=== PATIENT | female | born 1970 | race Hispanic/Latino ===

== ENCOUNTER 2023-04-12 03:30 | Emergency (ER) | payer MEDICAID, SELFPAY ==
[2023-04-12 03:35] VITALS: BP 135/95; PULSE 98; RESP 20; TEMP 36.5; O2SAT 97
[2023-04-12 04:17] LABS: Influenza A QL RT-PCR Negative (Negative); Influenza B QL RT-PCR Negative (Negative); RSV RNA, RT-PCR Negative (Negative); SARS-CoV-2 RNA PCR Positive (Negative)
[2023-04-12 04:54] VITALS: PULSE 80; RESP 20; O2SAT 97
--- NOTE | 2023-04-12 05:52 | ED.URI ---
HPI - URI/Sore Throat General Chief Complaint: Upper Respiratory Infection Stated Complaint: fever and cough Time Seen by Provider: 04/12/23 05:51 Source: patient Limitations: language barrier History of Present Illness HPI Narrative: 52 yo Yemeni speaking patient presents with URI symptoms. Interpretive services by [facility]oni #[id number]. Has had fever and dry non productive cough since Wednesday. Temperature of 103 four or fiver hours ago. Has been taking tylenol and ibuprofen. Throat and back hurt. No cardiac history, underlying lung conditsion. Has diabetes and hypertension. States she has a primary care provider. No sick contacts; lives with children. Related Data Allergies Allergy/AdvReac Type Severity Reaction Status Date / Time No Known Allergies Allergy Mild Verified 04/12/23 03:38 PMFSH Past Medical History Medical History Diabetes HTN (hypertension) Social History Social History (Updated 04/15/23 @ 20:04 by Danyelle Chun MD) Living arrangements: with family Additional living arrangements comments: children Exam Narrative: GENERAL: Well-appearing, well-nourished, and in no acute distress. HEAD: Normocephalic, atraumatic. EYES: Non injected, non icteric ENT: Nares clear, no rhinorrhea or epistaxis. NECK: Supple. CHEST: Clear to auscultation. No respiratory distress. HEART: Regular rate and rhythm. . ABDOMEN: Soft, nondistended. EXTREMITIES: Normal range of motion. No edema. SKIN: Warm, dry, no rash. NEURO: No focal deficits. Alert and oriented. PSYCH: Normal mood and affect. Course Vital Signs Vital signs: Vital Signs Temperature 97.7 F 04/12/23 03:35 Pulse Rate 98 04/12/23 03:35 Respiratory Rate 20 04/12/23 03:35 Blood Pressure 135/95 H 04/12/23 03:35 Pulse Oximetry 97 04/12/23 03:35 Oxygen Delivery Room Air 04/12/23 03:35 Temperature 97.7 F 04/12/23 03:35 Pulse Rate 82 04/12/23 06:30 Respiratory Rate 18 04/12/23 06:30 Blood Pressure 135/95 H 04/12/23 03:35 Pulse Oximetry 98 04/12/23 06:30 Oxygen Delivery Room Air 04/12/23 04:53 MDM - URI/Sore Throat MDM Narrative Medical decision making narrative: Pt is a Yemeni speaking female with HTN and DM who presents with fever, cough, sore throat and myalgias (particularly back ache) since Wednesday. Interpretive services by [facility] #[id number] She tests positive for covid. Denies needing additional Rx for APAP or ibuprofen. Will be prescribed Paxlovid given underlying co-morbidities but is made aware of side effects. Discharged in stable condition. Lab Data Labs: Lab Results 04/12/23 Range/Units 03:33 Influenza A (RT-PCR) Negative (Negative) Influenza B (RT-PCR) Negative (Negative) RSV (RT-PCR) Negative (Negative) SARS-CoV-2 RNA (RT-PCR) Positive A (Negative) Discharge Plan Discharge Clinical Impression: COVID Patient Disposition: Home, Self-Care Condition: Stable Instructions: Antibiotic Form, COVID-19 (Coronavirus Disease 2019) (ED) Additional Instructions: Continue to take Tylenol and ibuprofen for body aches. You have been prescribed Paxlovid for COVID. You can stop taking it if you have bad side effects. Follow up with your primary care physician. Return to the ED if new/worsening symptoms . Patient Language: Yemeni Prescriptions: New Paxlovid 300 mg (150 mg x 2)-100 mg tablets,dose pack See Rx Instructions .ROUTE .COMPLEX Qty: 30 0RF Rx Instructions: take TWO 150 mg tablets of nirmatrelvir with ONE 100 mg tablet of ritonavir twice daily for 5 days Follow-up/Referrals: PHYSICIAN,MECHANICAL LABORATORY TECHNICIAN [Non-Staff] - Stand Alone Forms: Work/School Release IP Time of Disposition: 06:22
[2023-04-12 06:30] VITALS: PULSE 82; RESP 18; O2SAT 98
[2023-04-12] MEDS: ACETAMINOPHEN 500 MG TABLET 1000 MG PO (06:30)
== END 2023-04-12 06:33 | disposition home or self-care (01) ==
PROVIDERS: Emergency Provider Student in an Organized Health Care Education/Training Program
DX: U07.1 COVID-19 (principal); I10 Essential (primary) hypertension; E11.9 Type 2 diabetes mellitus without complications
CPT/HCPCS: 87637; 99283; A9270

== ENCOUNTER 2023-12-24 19:46 | Emergency (ER) | payer OTHER, SELFPAY ==
--- NOTE | ~2023-12-24 | CT_ITS ---
EXAMINATION: CT abdomen pelvis w con DATE: 12/25/2023 00:48 INDICATION: Abdominal pain. TECHNIQUE: Computed tomography (CT) of the abdomen and pelvis was performed with 100 mL Omnipaque 350 intravenous contrast. Automated exposure control and iterative reconstruction technique were employe d. The dose-length product was 291.59 mGy-cm. COMPARISON: CT abdomen 06/30/2008 FINDINGS: The visualized portions of the lung bases demonstrate mild atelectasis. Calcified right marianne g nodules are consistent with old granulomatous disease. No pleural effusion. The heart size is elbert l. No pericardial effusion. There is a small sliding hiatal hernia. The liver, gallbladder, spleen, p ancreas, adrenal glands, and left kidney are normal. There is a 9 mm cyst in right kidney. There are no dilated loops of bowel. There is wall thickening of loops of small bowel. The appendix is normal. There are no pathologically enlarged lymph nodes. There is no free intraperitoneal fluid. There is mi ld lumbar spondylosis. IMPRESSION: 1. Small bowel wall thickening, consistent with interstitial edema versus enteritis. 2. Small sliding hiatal hernia. Reviewed, dictated and finalized at location A. IMPRESSION: 1. Small bowel wall thickening, consistent with interstitial edema versus enter itis. 2. Small sliding hiatal hernia.
--- NOTE | ~2023-12-24 | XR_ITS ---
EXAMINATION: XR chest 2V DATE: 12/25/2023 00:58 INDICATION: Fever. Tachypnea. TECHNIQUE: Frontal and lateral views of the chest were obtained. COMPARISON: Chest 2 views 12/28/2007, CT abdomen and pelvis 12/25/2023 FINDINGS: There is mild atelectasis in the lower lung zones. No pleural effusion or pneumothorax. The heart size is normal. IMPRESSION: 1. Mild atelectasis in the lower lung zones. Reviewed, dictated and finalized at location A.
[2023-12-24 19:47] VITALS: BP 129/85; PULSE 105; RESP 18; TEMP 37.1; O2SAT 99
[2023-12-24 23:56] LABS: Basophils Percent Auto 0.2 % (0.2-1.2); Eosinophils Percent Auto 0.2 % (0-4.4); Hematocrit 40.2 % (37.0-47.0); Hemoglobin 13.9 g/dL (12.0-15.0); Immature Granulocyte Absolute 0.02 K/mm3 (0.00-0.031); Immature Granulocyte Percent A 0.4 % (0-0.5); Lymphocytes Absolute Auto 1.16 K/mm3 (0.9-3.2); Lymphocytes Percent Auto 22.8 % (18.3-44.2); Mean Corpuscular HGB Conc 34.6 g/dl (32-36); Mean Corpuscular Hemoglobin 29.7 pg (26-34); Mean Corpuscular Volume 85.9 fl (80-100); Mean Platelet Volume 10.2 fl (7.4-10.4); Monocytes Absolute Auto 0.5 K/mm3 (0.1-0.6); Neutrophils Absolute Auto 3.4 K/mm3 (1.3-6.7); Neutrophils Percent Auto 67.4 % (45.5-73.1); Platelet Count Result 234 k/mm3 (150-375); Red Blood Count 4.68 M/mm3 (4.2-5.4); Red Cell Distribution Width 14.3 % (11.5-14.5); White Blood Count 5.1 K/mm3 (4.5-10.0)
[2023-12-24] MEDS: SODIUM CHLORIDE 0.9% IV 1,000 ML 999 ML IV CONT (23:58)
[2023-12-24] MEDS: ACETAMINOPHEN 500 MG TABLET 1000 MG PO (23:59)
[2023-12-24] MEDS: KETOROLAC 30 MG/ML VIAL (*BKC) IV PUSH (23:59)
[2023-12-24] MEDS: FAMOTIDINE 20 MG/2 ML VIAL IV PUSH (23:59)
[2023-12-24] MEDS: MORPHINE SULFATE (*CRX) 4 MG/ML INJ IV PUSH (23:59)
[2023-12-24] MEDS: ONDANSETRON INJ 4 MG/2 ML VIAL IV PUSH (23:59)
[2023-12-25 00:06] LABS: INR 1.1; Prothrombin Time 14.3 Seconds (11.1-14.7)
[2023-12-25 00:07] LABS: Partial Thromboplastin Time 31.7 Seconds (22.3-36.8)
--- NOTE | 2023-12-25 00:14 | ED.ABDPAIN ---
HPI - Abdominal Pain General Chief Complaint: Abdominal Pain <MARTI Field Last Filed: 12/25/23 04:02> Stated Complaint: abd pain <Aruna Irby APRN - Last Filed: 12/25/23 04:02> Time Seen by Provider: 12/24/23 22:15 <Aruna Irby APRN - Last Filed: 12/25/23 04:02> History of Present Illness HPI narrative: Patient is a 53-year-old female presents to the ER with complaints of abdominal pain. She reports the abdominal pain started three days ago. Pt endorses fever, increased urination with small amounts, and headache. She reports she has history of high blood pressure and diabetes. Pt denies chest pain, shortness of breath, and one-sided numbness/tingling. <Aruna Irby APRN - Last Filed: 12/25/23 04:02> Related Data Allergies/Adverse Reactions: Allergies Allergy/AdvReac Type Severity Reaction Status Date / Time No Known Allergies Allergy Mild Verified 12/24/23 22:28 <Aruna Irby APRN - Last Filed: 12/25/23 04:02> Review of Systems Review of Systems: All systems reviewed & are unremarkable except as noted in HPI and below <Aruna Irby APRN - Last Filed: 12/25/23 04:02> PMFSH Past Medical History Medical History: Medical History Diabetes HTN (hypertension) <MARTI iFeld Last Filed: 12/25/23 04:02> Social History Social History: Social History Living arrangements: with family Additional living arrangements comments: children <MARTI Field Last Filed: 12/25/23 04:02> Exam Narrative: GENERAL: Ill-appearing, well-nourished, non-toxic, in mild distress d/t pain. HEAD: Normocephalic, atraumatic. NECK: Supple. No adenopathy, no masses. RESPIRATORY: Airway patent, respirations nonlabored. Clear to auscultation bilaterally, no rales, rhonchi, wheezing. CARDIOVASCULAR: Tachycardic, regular rhythm without murmurs, rubs, or gallops. Peripheral pulses 2+ and equal bilaterally. ABDOMINAL: Soft, tender (R side more than L side), nondistended, no hepatosplenomegaly. Normoactive BS. Negative Psoa's sign, positive McBurney's sign. MUSCULOSKELETAL: Moves all extremities. Strength/ROM intact without gross deformities. SKIN: Hot to the touch, dry, normal color. No rashes. NEURO: A&O X3. Speech clear. Cranial nerves II-XII grossly intact. PSYCHIATRIC: Appropriate mood and affect. Normal interaction. <Aruna Irby APRN - Last Filed: 12/25/23 04:02> Course Course Emergency Course: Received sign-out on this patient pending CT abdomen pelvis. Her blood work is reassuring, no significant abnormalities. No leukocytosis, no transaminitis, normal lipase. CT abdomen pelvis with mild enteritis. No other acute abnormalities. On Re-evaluation, the patient states that she feels well. She currently denies any pain. She feels comfortable going home. Discussed the workup. Will send her home with [facility] and [facility]. Advised aggressive oral hydration and close PCP follow-up. Appropriate return precautions given. Patient and her son are agreeable this plan. Discharged in stable condition. <Ju Jenkins MD - Last Filed: 12/25/23 06:42> Vital Signs Vital signs: Vital Signs Temperature 98.8 F 12/24/23 19:47 Pulse Rate 105 H 12/24/23 19:47 Respiratory Rate 18 12/24/23 19:47 Blood Pressure 129/85 12/24/23 19:47 Pulse Oximetry 99 12/24/23 19:47 Oxygen Delivery Room Air 12/24/23 19:47 Temperature 98.8 F 12/24/23 19:47 Pulse Rate 66 12/25/23 04:54 Respiratory Rate 13 12/25/23 04:54 Blood Pressure 100/62 12/25/23 04:54 Pulse Oximetry 94 12/25/23 04:54 Oxygen Delivery Room Air 12/24/23 19:47 <Aruna Irby APRN - Last Filed: 12/25/23 04:02> Vital Signs Temperature 98.8 F 12/24/23 19:47 Pulse Rate 105 H 12/24/23 19:47
[2023-12-25 00:27] LABS: Alanine Aminotransferase 42 U/L (6-35); Albumin Level 4.3 g/dL (3.5-5.1); Alkaline Phosphatase 81 U/L (38-126); Anion Gap 12 mmol/L (4-12); Aspartate Amino Transferase 42 U/L (14-36); Bilirubin,Total 0.6 mg/dL (0.2-1.3); Blood Urea Nitrogen 20 mg/dL (7-17); Calcium 9.2 mg/dL (8.4-10.2); Carbon Dioxide 25 mmol/L (22-30); Chloride 99 mmol/L (98-107); Estimated CRCL calculation 90 ml/min; Estimated Glomerular Filt Rate > 60; Glucose 108 mg/dL (65-110); Lactic Acid Reflex 0.9 mmol/L (0.7-2.0); Lipase 97 U/L (23-300); Potassium 3.4 mmol/L (3.4-5.0); Sodium 136 mmol/L (137-145)
[2023-12-25 00:38] LABS: Troponin I < 0.012 ng/mL (0.000-0.034)
[2023-12-25 01:15] VITALS: BP 115/70; PULSE 81; RESP 16; O2SAT 98
[2023-12-25 02:37] LABS: Add Urine Microscopic? NO; Appearance Urine Clear (Clear); Bilirubin Urine Negative (Negative); Blood Urine Negative (Negative); Color Urine Yellow (Yellow); Glucose Urine UA 3+ mg/dL (Negative); Ketones Urine 2+ mg/dL (Negative); Leukocyte Esterase Ur Negative LEU/UL (Negative); Nitrate Urine Negative (Negative); Protein Urine Negative (Negative); Specific Grav Ur > 1.045 (1.001-1.035); Urobilinogen Urine 0.2 mg/dL (<2.0)
[2023-12-25 03:13] LABS: Influenza A QL RT-PCR Negative (Negative); Influenza B QL RT-PCR Negative (Negative); RSV RNA, RT-PCR Negative (Negative); SARS-CoV-2 RNA PCR Negative (Negative)
[2023-12-25] MEDS: SODIUM CHLORIDE 0.9% IV 1,000 ML 999 ML IV CONT (03:46)
[2023-12-25] MEDS: diphenhydrAMINE HCl INJ 50 MG/ML VIAL 25 MG IV PUSH (03:46)
[2023-12-25] MEDS: METOCLOPRAMIDE HCL INJ 10 MG/2 ML VIAL IV PUSH (03:46)
[2023-12-25] MEDS: MORPHINE SULFATE (*CRX) 4 MG/ML INJ IV PUSH (03:47)
[2023-12-25] MEDS: BELLADONNA ALK/PHENOB ELIX 10 ML, MAG HYDROX/ALUMINUM HYD/SIMETH 30 ML, LIDOCAINE HCL 2... PO (03:53)
[2023-12-25 03:55] VITALS: BP 104/64; PULSE 90; RESP 15; O2SAT 98
[2023-12-25 04:54] VITALS: BP 100/62; PULSE 66; RESP 13; O2SAT 94
[2023-12-25 06:30] VITALS: BP 99/73; PULSE 70; RESP 17; O2SAT 97
[2023-12-25 06:55] VITALS: BP 105/68; PULSE 68; RESP 15; O2SAT 98
== END 2023-12-25 06:56 | disposition home or self-care (01) ==
PROVIDERS: Emergency Provider Registered Nurse
DX: K52.9 Noninfective gastroenteritis and colitis, unspecified (principal); E11.9 Type 2 diabetes mellitus without complications; I10 Essential (primary) hypertension; Z20.822 Contact with and (suspected) exposure to COVID-19
CPT/HCPCS: 36415; 71046; 74177; 80053; 81003; 82010; 83036; 83605; 83690; 84484; 85025; 85610; 85730; 87040; 87637; 96361; 96374; 96375; 99284; A9270; J1200; J1885; J2270; J2405; J2765; J7030; Q9967